=== PATIENT | female | born 1990 | race Caucasian/White ===

== ENCOUNTER 2019-09-03 10:56 | Emergency (ER) | payer OTHER, SELFPAY | END 2019-09-03 11:22 | disposition home or self-care (01) | LOC: MADERS 10:56 | DX: J11.1 Influenza due to unidentified influenza virus with other respiratory manifestations (principal); Z87.891 Personal history of nicotine dependence | CPT/HCPCS: 99283 ==

== ENCOUNTER 2019-09-09 18:04 | Emergency (ER) | payer SELFPAY ==
[2019-09-09] MEDS ORDERED: Ondansetron ODT 4 MG TAB ONE (18:16)
[2019-09-09] MEDS ORDERED: Sodium Chloride 0.9% 1,000 ML ONE ×2 (18:26→19:25)
[2019-09-09 18:32] LABS: Bilirubin Negative (Negative); Blood, Urine Negative (Negative); Clarity Hazy (Clear); Glucose, Urine (Dipstick) Negative (Negative); Leukocyte Moderate (Negative); Nitrite Negative (Negative); Protein, Urine (Dipstick) Trace mg/dL (Neg-Trace)
[2019-09-09 18:33] LABS: Pregnancy Test - Urine (BHCG) Negative (Negative); Pregu Control Background? CLEAR/WHITE (CLR/WHITE); Pregu Control Bar Appear? YES (CONTROL BAR); Specific Gravity 1.015 (1.002-1.036)
[2019-09-09 18:36] LABS: Bacteria/HPF Rare-Few HPF (None Seen); RBC/HPF None Seen HPF (0-3); WBC/HPF 0-3 HPF (0-3)
--- NOTE | 2019-09-09 18:36 | RAD ---
EXAM: Chest PA and lateral: HISTORY: Cough. Recent influenza COMPARISON: none FINDINGS: Lung gonzalez are clear. Vascular markings are normal. Heart and mediastinum appear unremarkable. Osseous structures are unremarkable. IMPRESSION: Unremarkable chest
[2019-09-09 19:07] LABS: #Lymphocytes 1.6 thou/uL (1.20-3.40); #Monocytes 0.4 thou/uL (0.11-0.59); #Neutrophils 2.4 thou/uL (1.40-6.50); %Basophils 0.3 % (0.0-1.0); %Eosinophils 0.3 % (0.0-10.0); %Lymphocytes 36.9 % (21.0-51.0); %Monocytes 8.5 % (0.0-10.0); Hemoglobin 12.2 g/dL (12.0-16.0); Mean Corpuscular HGB CONC 30.9 g/dL (32.0-36.0); Mean Corpuscular Hemoglobin 25.4 pg (27.0-31.0); Mean Platelet Volume 9.5 fL (7.4-10.4); Platelet Count 145 thou/uL (130-400); Red Blood Cell (RBC) Count 4.82 mill/uL (4.20-5.40); White Blood Cell (WBC) Count 4.4 thou/uL (4.8-10.8)
[2019-09-09] MEDS ORDERED: Sodium Chloride 0.9% 250 ML 250 ML ONE (19:08)
[2019-09-09] MEDS ORDERED: Azithromycin 500 MG VIAL ONE (19:08)
[2019-09-09 19:25] LABS: ALT (SGPT) 61 U/L (8-55); AST (SGOT) 61 U/L (5-34); Albumin 3.7 g/dL (3.5-5.0); Alkaline Phosphatase 67 U/L (40-110); Anion Gap 11 mmol/L (10-20); BUN (Urea Nitrogen) 5 mg/dL (7.0-18.7); Bilirubin, Total 0.5 mg/dL (0.2-1.2); Calc. Creatinine Clearance 0 mL/min (70-130); Calcium 7.6 mg/dL (7.8-10.44); Carbon Dioxide 26 mmol/L (22-29); Chloride 108 mmol/L (98-107); Estimated GFR-MDRD Greater than 90; Globulin 2.6 g/dL (2.4-3.5); Glucose 98 mg/dL (70-105); Potassium 3.2 mmol/L (3.5-5.1); Protein, Total 6.3 g/dL (6.0-8.3); Sodium 142 mmol/L (136-145)
[2019-09-09] MEDS ORDERED: Potassium Chloride 20 MEQ TAB ONE (19:36)
== END 2019-09-09 20:46 | disposition home or self-care (01) ==
LOC: MADERS 18:04
DX: J18.9 Pneumonia, unspecified organism (principal); E87.6 Hypokalemia; R11.2 Nausea with vomiting, unspecified; Z87.891 Personal history of nicotine dependence
CPT/HCPCS: 36415; 71046; 80053; 81003; 81015; 81025; 83735; 85025; 96361; 96365; J0456; J7050; Q0162

== ENCOUNTER 2021-02-01 17:03 | Emergency (ER) | payer SELFPAY ==
[2021-02-01] MEDS ORDERED: Sulfameth/Trimethoprim DS 800-160mg TAB ONE (17:50)
[2021-02-01] MEDS ORDERED: Silver Sulfadiazine 50 GM TUBE ONE (17:51)
== END 2021-02-01 18:15 | disposition home or self-care (01) ==
LOC: MADERS 17:03
DX: L55.1 Sunburn of second degree (principal); R26.9 Unspecified abnormalities of gait and mobility; Z87.891 Personal history of nicotine dependence
CPT/HCPCS: 99282

== ENCOUNTER 2023-07-06 14:22 | Emergency (ER) | payer OTHER, SELFPAY ==
[2023-07-06] MEDS ORDERED: Lactated Ringer's 1,000 ML ONE (15:13)
[2023-07-06] MEDS ORDERED: Orphenadrine Citrate 60 MG/2 ML VIAL ONE (15:13)
[2023-07-06] MEDS ORDERED: Ketorolac Tromethamine 30 MG/ML VIAL ONE (15:13)
[2023-07-06 15:29] LABS: BHCG - Serum Negative (NEGATIVE); Pregs Control Background? CLEAR/WHITE (CLR/WHITE); Pregs Control Bar Appear? YES (CONTROL BAR)
[2023-07-06 16:39] LABS: Bilirubin Negative (Negative); Blood, Urine Negative (Negative); Glucose, Urine (Dipstick) Negative (Negative); Ketone, Urine Negative (Negative); Leukocyte Trace (Negative); Nitrite Negative (Negative); Protein, Urine (Dipstick) Negative (Neg-Trace); Urobilinogen 0.2 mg/dL (Less than 2)
[2023-07-06 16:40] LABS: Bacteria/HPF 1+ HPF (None Seen); CAUTI Indications for Culture Pelvic or flank pain; Clarity Hazy (Clear); RBC/HPF None Seen HPF (0-3); WBC/HPF 0-3 HPF (0-3)
[2023-07-06 16:41] LABS: Urine Culture Reflex No No
== END 2023-07-06 17:13 | disposition home or self-care (01) ==
LOC: MADERS 14:22
DX: S39.012A Strain of muscle, fascia and tendon of lower back, initial encounter (principal); F17.210 Nicotine dependence, cigarettes, uncomplicated; V43.52XA Car driver injured in collision with other type car in traffic accident, initial encounter; Y92.410 Unspecified street and highway as the place of occurrence of the external cause
CPT/HCPCS: 36415; 71046; 72131; 81001; 84703; 96360; J1885; J2360; J7120